=== PATIENT | female | born 1990 | race Caucasian/White ===

== ENCOUNTER 2017-01-21 22:37 | Inpatient (IN) | payer OTHER, MEDICAID ==
[2017-01-21] MEDS ORDERED: Oxytocin/Lactated Ringers 10 UNIT/1,000 ML BAG IV SCH (23:45)
[2017-01-21] MEDS ORDERED: Nalbuphine 20 MG/1 ML Amp IVPUSH PRN (23:50)
[2017-01-21] MEDS ORDERED: Sodium Chloride 0.9% 10 ML Syringe FLUSH PRN (23:50)
[2017-01-21] MEDS ORDERED: Measles, Mumps & Rubella Vaccine 0.5 ML SDV SUBCUT ONE (23:52)
[2017-01-22] MEDS ORDERED: Oxytocin/Lactated Ringers 10 UNIT/1,000 ML BAG IV SCH ×2 (03:00→14:30)
[2017-01-22] MEDS: Lactated Ringers 1,000 ML IV SCH ×5 (05:08→19:51)
--- NOTE | 2017-01-22 10:01 | HP ---
DATE OF ADMISSION: 01/21/2017 ADMISSION DIAGNOSES: A 36 and 2/7th week intrauterine , spontaneous rupture of membranes. HISTORY OF PRESENT ILLNESS: The patient is a 26-year-old, 1, para 0, white female, who is admitted to Labor and Delivery with reports of a gush of fluid on the evening of 01/21/2017. She initially is not simone upon admission, but has started simone at this time. She is noted to have gross rupture of membranes per visualization. heart rate is reassuring and occasional contractions are now being noted. 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 Repeat ultrasound done on 10/06/2016 supported the initial ultrasound dating. The patient has had regular care and has been relatively unremarkable with the exception of gestational diabetes. This is diet controlled. She is group B strep negative. 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 Her rubella titer shows equivocal results with recommendation given to do an MMR after delivery. Her Tdap vaccination was given on 01/19/2017. Her initial visit was on 07/16/2016 at 9 and 1/7th weeks gestational age. Her weight gain has been from 198.2 pounds at first visit to 203.2 pounds. Her vital signs have been stable and her fundal height growth has been appropriate. The patient has somewhat regular cycles with frequency of q.30 days using no control at the time of conception. Laboratory testing in includes blood, which is A positive with negative antibody screen. First trimester laboratory testing showed a hemoglobin of 14.6 and platelets of 308. Her rubella titer was equivocal. RPR is nonreactive. Hepatitis B and HIV assays were negative. Gonorrhea and chlamydia assays are negative. Second trimester testing showed a hemoglobin that was normal at 12.4, platelets that were normal at 219,000. Her 1-hour glucose tolerance test was elevated at 171. A 3-hour glucose tolerance test was abnormal with fasting blood sugar of 96. A 1-hour blood sugar of 177, a 2-hour blood sugar of 166, and a 3-hour blood sugar of 125. Her group B strep screen done on 01/19/2017 was negative. ALLERGIES: Wheat, which causes a headache; dairy; gluten, which causes headaches. No known drug allergies. CURRENT MEDICATIONS: 1. Valacyclovir 500 mg tablets one with onset of cold sore symptoms and repeat in 12 hours. 2. Multivitamins 1 daily. PAST MEDICAL HISTORY: Relatively unremarkable. PAST SURGICAL HISTORY: Noncontributory. FAMILY HISTORY: Maternal grandparents, paternal grandparents, and great grandparents with diabetes. Paternal great grandfather with heart disease. Maternal grandmother and mother with or depression in general. Paternal grandfather with varicosities. Maternal aunt with thyroid dysfunction. Paternal aunt with breast and thyroid cancer. Maternal grandfather with cancer, type unknown. SOCIAL HISTORY: The patient is . is Saad Collins. The patient does not use any significant alcohol, drugs, or tobacco. She lives in [place]. REVIEW OF SYSTEMS: SKIN: Negative. CARDIOVASCULAR: No chest pain or exercise intolerance. Respiratory: No infectious symptoms or asthma noted. BREASTS: Changes associated with only. GI: Appetite is good. No problems apparent. : Changes are associated with . MUSCULOSKELETAL: Unremarkable with the exception of occasional edema. NEUROLOGIC: Unremarkable. PHYSICAL EXAMINATION: VITAL SIGNS: On last evaluation in clinic on 01/19/2017, the patient's weight was 205 pounds, her blood pressure is 104/66, and her heart rate was 153. Initial evaluation showed height of 5 feet 3 inches and weight of 198.2 pounds. GENERAL: The patient is a well-developed, well-nourished, pleasant female, stated age, in no significant distress. SKIN: Warm and dry without lesions. LUNGS: Clear with good breath sounds in all lung sanchez. CARDIOVASCULAR: Regular rate and rhythm without murmurs. BREASTS: Deferred having been done at first visit, found to be normal. ABDOMEN: Protuberant with with last fundal height in clinic at 35+ cm with baby in a vertex presentation by Kostas maneuvers. GENITAL: Shows cervix to be closed at that time, soft, 20% effaced, midline, -3 station. It is now dilated to at least 1 cm. EXTREMITIES AND NEUROLOGICAL: Grossly within normal limits. No edema is noted. ASSESSMENT: 1. Horn intrauterine at 36 and 2/7th weeks gestational age, admitted with spontaneous rupture of membranes and early labor. 2. The patient plans to nurse. 3. Group B strep screen is negative. 4. Gestational diabetes - diet controlled. 5. Up-to-date regarding her Tdap vaccination. 6. She is rubella equivocal, therefore MMR is recommended after delivery. PLAN: 1. Anticipate normal spontaneous vaginal delivery. We will begin Pitocin augmentation because it has been approximately 6-8 hours since rupture of membranes. The patient is not simone intensely. 2. Analgesia per the patient's desire. 3. Support nursing decision. 4. CBC upon admission. MMODAL /[id number]
[2017-01-22] MEDS ORDERED: diphenhydrAMINE 50 MG/ML SDV IVPUSH PRN (16:02)
[2017-01-22] MEDS ORDERED: fentaNYL 100 MCG/2 ML SDV EPIDUR PRN (16:02)
[2017-01-22] MEDS: Bupivacaine/fentaNYL/NS 100 ML Bag EPIDUR SCH ×2 (16:19→23:45)
--- NOTE | 2017-01-22 16:29 | PCM.PREANE ---
Preanesthetic Assessment - Anesthesia/Transfusion/Family Hx Anesthesia History: Prior Anesthesia Without Reaction Family History of Anesthesia Reaction: No Transfusion History: No Prior Transfusion(s) - Review of Systems General: No Symptoms Pulmonary: No Symptoms Cardiovascular: No Symptoms Gastrointestinal: No symptoms Neurological: No Symptoms Other: Reports: None - Physical Assessment Pulse: 102 O2 Sat by Pulse Oximetry: 98 Respiratory Rate: 18 Blood Pressure: 129/78 Temperature: 36.9 C Vital Signs: Last Vital Signs Temp 36.9 C 01/21/17 22:55 Pulse 97 01/21/17 22:55 Resp 18 01/21/17 22:55 BP 129/78 01/21/17 22:55 Pulse Ox Height: 1.6 m Weight: 93.667 kg ASA Class: 2 Mental Status: Alert & Oriented x3 Airway Class: Mallampati = 1 Dentition: Reports: Normal Dentition ROM/Head Extension: Full Lungs: Clear to auscultation, Normal respiratory effort Cardiovascular: Regular Rate, Regular Rhythm - Lab Values: Laboratory Last Values WBC 9.11 K/mm3 (3.98-10.04) 01/21/17 23:58 RBC 4.16 M/mm3 (3.98-5.22) 01/21/17 23:58 Hgb 12.0 gm/L (11.2-15.7) 01/21/17 23:58 Hct 35.4 % (34.1-44.9) 01/21/17 23:58 MCV 85.1 fl (79.4-94.8) 01/21/17 23:58 MCH 28.8 pg (25.6-32.2) 01/21/17 23:58 MCHC 33.9 g/dl (32.2-35.5) 01/21/17 23:58 RDW Std Deviation 41.7 fL (36.4-46.3) 01/21/17 23:58 Plt Count 209 K/mm3 (182-369) 01/21/17 23:58 MPV 11.2 fl (9.4-12.3) 01/21/17 23:58 Neut % (Auto) 66.2 % (34.0-71.1) 01/21/17 23:58 Lymph % (Auto) 23.7 % (19.3-51.7) 01/21/17 23:58 [place] % (Auto) 9.0 % (4.7-12.5) 01/21/17 23:58 Eos % (Auto) 0.8 (0.7-5.8) 01/21/17 23:58 Baso % (Auto) 0.1 % (0.1-1.2) 01/21/17 23:58 Neut # (Auto) 6.03 K/mm3 (1.56-6.13) 01/21/17 23:58 Lymph # (Auto) 2.16 K/mm3 (1.18-3.74) 01/21/17 23:58 [place] # (Auto) 0.82 K/mm3 (0.24-0.36) H 01/21/17 23:58 Eos # (Auto) 0.07 K/mm3 (0.04-0.36) 01/21/17 23:58 Baso # (Auto) 0.01 K/mm3 (0.01-0.08) 01/21/17 23:58 - Allergies Allergies/Adverse Reactions: Allergies Allergy/AdvReac Type Severity Reaction Status Date / Time No Known Allergies Allergy Verified 01/21/17 16:37 - Acknowledgements Anesthesia Type Planned: Epidural Pt an Appropriate Candidate for the Planned Anesthesia: Yes Alternatives and Risks of Anesthesia Discussed w Pt/Guardian: Yes Pt/Guardian Understands and Agrees with Anesthesia Plan: Yes PreAnesthesia Questionnaire Gastrointestinal History: Reports: GERD 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: Neurological History: Reports: Migraines Endocrine/Metabolic History: Reports: Diabetes, Gestational - Infectious Disease History Infectious Disease History: Reports: Chicken Pox - Past Surgical History HEENT Surgical History: Reports: Oral Surgery - SUBSTANCE USE Smoking Status *Q: Never Smoker Second Hand Smoke Exposure: No Recreational Drug Use History: No - CURRENT (IN HOUSE) MEDS Current Meds: Current Medications Diphenhydramine HCl (Benadryl) 25 mg IVPUSH Q6H PRN PRN Reason: Itching Ephedrine Sulfate (Ephedrine Sulfate) 5 mg IVPUSH ASDIRECTED PRN PRN Reason: HYPOTENTSION Fentanyl (Sublimaze) 100 mcg EPIDUR Q3H PRN PRN Reason: PAIN Last Admin: 01/22/17 16:18 Dose: 100 mcg Fentanyl/Bupivacaine HCl (Fentanyl/Bupivacaine/Ns 2 Mcg-0.125% 100 Ml) 100 ml EPIDUR ASDIRECTED MAMIE Last Admin: 01/22/17 16:19 Dose: 100 ml Lactated Ringer's (Ringers, Lactated) 1,000 mls @ 100 mls/hr IV ASDIRECTED MAMIE Last Admin: 01/22/17 12:14 Dose: 100 mls/hr Oxytocin/Lactated Ringer's (Pitocin In Lr 10 Units/1,000 Ml) 10 unit in 1,000 mls @ 500 mls/hr IV TITRATE MAMIE PRN Reason: Protocol Oxytocin/Lactated Ringer's (Pitocin In Lr 10 Units/1,000 Ml) 10 unit in 1,000 mls @ 12 mls/hr IV TITRATE MAMIE; 2 MUNITS/MIN PRN Reason: Protocol Last Titration: 01/22/17 15:09 Dose: 0 munits/min, 0 mls/hr Oxytocin 20 unit/ Lactated (Ringer's) 1,002 mls @ 60.12 mls/hr IV TITRATE MAMIE; 20 MUNITS/MIN PRN Reason: Protocol Last Titration: 01/22/17 15:20 Dose: 21 munits/min, 63.12 mls/hr Nalbuphine HCl (Nubain) 10 mg IVPUSH Q2H PRN PRN Reason: Pain (moderate 4-6) Sodium Chloride (Saline Flush) 10 ml FLUSH ASDIRECTED PRN PRN Reason: Keep Vein Open Discontinued Medications Oxytocin/Lactated Ringer's (Pitocin In Lr 10 Units/1,000 Ml) 10 unit in 1,000 mls @ 120 mls/hr IV TITRATE MAMIE; 20 MUNITS/MIN PRN Reason: Protocol Measles/Mumps/Rubella Vaccine Live (M-M-R Ii Vaccine) 0.5 ml SUBCUT .ONCE ONE Stop: 01/21/17 23:53
[2017-01-22] MEDS: ePHEDrine 50 MG/ML SDV IVPUSH PRN ×2 (16:41→16:45)
[2017-01-22] MEDS: Acetaminophen 325 MG Tab PO PRN (20:00)
[2017-01-22] MEDS ORDERED: ceFAZolin 2 GM in Premix Bag 1 BAG IV ONE (22:00)
[2017-01-22] MEDS ORDERED: Ondansetron 4 MG/2 ML SDV IVPUSH PRN (22:15)
[2017-01-22] MEDS ORDERED: Ondansetron 4 MG/2 ML SDV ONE (22:17)
[2017-01-23] MEDS: Acetaminophen 325 MG Tab PO PRN (00:35)
[2017-01-23] MEDS ORDERED: ceFAZolin 1 GM in Premix Bag 1 BAG IV SCH (04:00)
[2017-01-23] MEDS ORDERED: Lidocaine 1% 50 ML MDV ONE (04:38)
[2017-01-23] MEDS ORDERED: Lidocaine 1% 50 ML MDV INJECT ONE (04:45)
--- NOTE | 2017-01-23 05:17 | PCM.SN ---
- Free Text/Narrative Note: Malini is a 26-year-old 1 now para 1001 white female who was admitted approximately 36 hours ago with spontaneous rupture membranes at 36-2/7 weeks gestational age. She is allowed to labor naturally for approximate 6-8 hours and actually declined Pitocin augmentation during that time in hopes to have a natural delivery. Approximately 8-10 hours after rupture membranes Pitocin was allowed to be started and was given for augmentation of labor. The patient had a very slow increase in frequency and intensity of labor with the Pitocin advancement. She eventually achieved complete cervical dilation in the early hours of 01/23/2017. She had a low-grade temperature and was started on Ancef. She received 2 doses of Ancef total during the course of her labor She delivered a viable, garcia, male infant with Apgars of 6 and 8, a weight of 3280 g (7 pounds 3.7 ounces), 20.5 inches in length in a right occiput posterior position at 0447 hrs. on 01/23/2017. The baby delivered over a midline episiotomy. Lidocaine 1% approximately 15 mL total was used as a local injection in the area of the perineum. There were no extensions or other lacerations noted. Pitocin was given IV after delivery of the baby. The baby's nose and mouth were bulb suctioned and the baby was placed on mom's abdomen. Cord was clamped 2 and cut by the father. Cord blood was obtained. The baby was moved to the warmer and dried. Placenta delivered in a Schultze fashion, appeared intact and had a three- vessel cord. Estimated blood loss was approximately 300 mL. Episiotomy was repaired in a routine fashion using 3-0 Monocryl suture. Estimated blood loss is 100 mL. Condition good. Patient plans to nurse.
[2017-01-23] MEDS ORDERED: Witch Hazel Medicated Pads 100/Jar TOP PRN (06:35)
[2017-01-23] MEDS ORDERED: Lanolin 100% Cream 7 GM Tube TOP PRN (06:35)
[2017-01-23] MEDS ORDERED: Benzocaine/Menthol 20%-0.5% Spray 56 GM Canister TOP PRN (06:35)
[2017-01-23] MEDS ORDERED: Acetaminophen 325 MG Tab PO PRN (06:35)
[2017-01-23] MEDS: Ibuprofen 600 MG Tab PO PRN ×3 (07:36→21:06)
--- NOTE | 2017-01-23 11:12 | PCM48HPAN ---
Post Anesthesia Note - EVALUATION WITHIN 48HRS OF ANESTHETIC Vital Signs in Normal Range: Yes Patient Participated in Evaluation: Yes Respiratory Function Stable: Yes Airway Patent: Yes Cardiovascular Function Stable: Yes Hydration Status Stable: Yes Pain Control Satisfactory: Yes Nausea and Vomiting Control Satisfactory: Yes Mental Status Recovered: Yes
[2017-01-23] MEDS: Docusate Sodium 100 MG Cap PO PRN (12:25)
[2017-01-23] MEDS: Prenatal Multivitamin with Calcium/Folic Acid/Iron Tab PO SCH (12:25)
[2017-01-23] MEDS ORDERED: Bupivacaine 0.25% 10 ML SDV ONE (22:22)
--- NOTE | 2017-01-24 08:31 | PCM.PNPP ---
- General Info Date of Service: 01/24/17 Functional Status: Reports: pain controlled - Review of Systems General: Reports: No Symptoms HEENT: Reports: no symptoms Pulmonary: Reports: no symptoms Cardiovascular: Reports: No Symptoms Gastrointestinal: Reports: No symptoms Genitourinary: Reports: no symptoms Musculoskeletal: Reports: no symptoms Skin: Reports: no symptoms Neurological: Reports: No Symptoms Psychiatric: Reports: no symptoms - General Info Date of Service: 01/25/17 - Patient Data Vital Signs - most recent: Last Vital Signs Temp 36.5 C 01/23/17 21:08 Pulse 66 01/23/17 21:08 Resp 1 L 01/23/17 21:08 BP 116/60 01/23/17 21:08 Pulse Ox 96 01/23/17 21:08 Weight - most recent: 93.667 kg I&O - last 24 hours: Intake & Output 01/23/17 01/24/17 01/24/17 22:59 06:59 14:59 Intake Total 360 Balance 360 Lab Results - last 24 hrs: Laboratory Results - last 24 hr 01/24/17 Range/Units 05:06 WBC 12.00 H (3.98-10.04) K/mm3 RBC 3.57 L (3.98-5.22) M/mm3 Hgb 10.4 L (11.2-15.7) gm/L Hct 30.9 L (34.1-44.9) % MCV 86.6 (79.4-94.8) fl MCH 29.1 (25.6-32.2) pg MCHC 33.7 (32.2-35.5) g/dl RDW Std Deviation 42.1 (36.4-46.3) fL Plt Count 165 L (182-369) K/mm3 MPV 10.8 (9.4-12.3) fl Med Orders - Current: Current Medications Acetaminophen (Tylenol) 650 mg PO Q4H PRN PRN Reason: mild pain or fever Benzocaine/Menthol (Dermoplast Pain Relief [place]) 0 gm TOP ASDIRECTED PRN PRN Reason: Perineal Comfort Measure Last Admin: 01/23/17 07:43 Dose: 1 canister Docusate Sodium (Colace) 100 mg PO BID PRN PRN Reason: Constipation Last Admin: 01/23/17 12:25 Dose: 100 mg Emollient Ointment (Lansinoh Hpa) 0 gm TOP ASDIRECTED PRN PRN Reason: Sore Nipples Oxytocin 20 unit/ Lactated (Ringer's) 1,002 mls @ 500 mls/hr IV ASDIRECTED COUNT INCLUDES THE [facility] Last Admin: 01/23/17 04:50 Dose: 500 mls/hr Ibuprofen (Motrin) 600 mg PO Q4H PRN PRN Reason: Mild pain or fever Last Admin: 01/23/17 21:06 Dose: 600 mg Prenat Multivit/[place]/Iron/Folic Ac ( Plus Iron) 1 each PO DAILY COUNT INCLUDES THE [facility] Last Admin: 01/23/17 12:25 Dose: 1 each Witch Mariella (Tucks) 1 pad TOP ASDIRECTED PRN PRN Reason: Hemorrhoid pain Last Admin: 01/23/17 07:43 Dose: 1 box Discontinued Medications Acetaminophen (Tylenol) 650 mg PO Q4H PRN PRN Reason: Pain Last Admin: 01/23/17 00:35 Dose: 650 mg Bupivacaine HCl (Sensorcaine-Mpf 0.25%) 10 ml .ROUTE .K-MED ONE Stop: 01/23/17 22:23 Diphenhydramine HCl (Benadryl) 25 mg IVPUSH Q6H PRN PRN Reason: Itching Ephedrine Sulfate (Ephedrine Sulfate) 5 mg IVPUSH ASDIRECTED PRN PRN Reason: HYPOTENTSION Last Admin: 01/22/17 16:45 Dose: 5 mg Fentanyl (Sublimaze) 100 mcg EPIDUR Q3H PRN PRN Reason: PAIN Last Admin: 01/22/17 16:18 Dose: 100 mcg Fentanyl/Bupivacaine HCl (Fentanyl/Bupivacaine/Ns 2 Mcg-0.125% 100 Ml) 100 ml EPIDUR ASDIRECTED COUNT INCLUDES THE [facility] Last Admin: 01/22/17 23:45 Dose: 100 ml Lactated Ringer's (Ringers, Lactated) 1,000 mls @ 100 mls/hr IV ASDIRECTED COUNT INCLUDES THE [facility] Last Admin: 01/22/17 19:51 Dose: 100 mls/hr Oxytocin/Lactated Ringer's (Pitocin In Lr 10 Units/1,000 Ml) 10 unit in 1,000 mls @ 500 mls/hr IV TITRATE COUNT INCLUDES THE [facility] PRN Reason: Protocol Oxytocin/Lactated Ringer's (Pitocin In Lr 10 Units/1,000 Ml) 10 unit in 1,000 mls @ 12 mls/hr IV TITRATE MAMIE; 2 MUNITS/MIN PRN Reason: Protocol Last Titration: 01/22/17 15:09 Dose: 0 munits/min, 0 mls/hr Oxytocin/Lactated Ringer's (Pitocin In Lr 10 Units/1,000 Ml) 10 unit in 1,000 mls @ 120 mls/hr IV TITRATE MAMIE; 20 MUNITS/MIN PRN Reason: Protocol Oxytocin 20 unit/ Lactated (Ringer's) 1,002 mls @ 60.12 mls/hr IV TITRATE MAMIE; 20 MUNITS/MIN PRN Reason: Protocol Last Titration: 01/23/17 02:10 Dose: 23 munits/min, 69.13 mls/hr Cefazolin Sodium/Dextrose 2 gm (/ Premix) 50 mls @ 100 mls/hr IV ONETIME ONE Stop: 01/22/17 22:29 Last Admin: 01/22/17 22:00 Dose: 100 mls/hr Cefazolin Sodium/Dextrose 1 gm (/ Premix) 50 mls @ 100 mls/hr IV Q6H MAMIE Last Admin: 01/23/17 03:50 Dose: 100 mls/hr Lidocaine HCl (Xylocaine 1%) Confirm Administered Dose 50 ml .ROUTE .STK-MED ONE Stop: 01/23/17 04:39 Last Admin: 01/23/17 06:05 Dose: Not Given Lidocaine HCl (Xylocaine 1%) 50 ml INJECT ONETIME ONE Stop: 01/23/17 04:46 Last Admin: 01/23/17 04:55 Dose: 50 ml Measles/Mumps/Rubella Vaccine Live (M-M-R Ii Vaccine) 0.5 ml SUBCUT .ONCE ONE Stop: 01/21/17 23:53 Nalbuphine HCl (Nubain) 10 mg IVPUSH Q2H PRN PRN Reason: Pain (moderate 4-6) Ondansetron HCl (Zofran) Confirm Administered Dose 4 mg .ROUTE .STK-MED ONE Stop: 01/22/17 22:18 Last Admin: 01/23/17 00:13 Dose: Not Given Ondansetron HCl (Zofran) 4 mg IVPUSH Q4H PRN PRN Reason: Nausea Last Admin: 01/22/17 22:25 Dose: 4 mg Sodium Chloride (Saline Flush) 10 ml FLUSH ASDIRECTED PRN PRN Reason: Keep Vein Open - Infant Interaction Disposition, : [place] at Bedside Support Person: - Exam General: alert, oriented HEENT: Pupils equal Neck: supple Lungs: Clear to auscultation, Normal respiratory effort Cardiovascular: Regular Rate, Regular Rhythm Abdomen: bowel sounds present, soft, no tenderness, no distension Extremities: no edema Skin: warm, dry, intact Wound/Incisions: healing well Neurological: no new focal deficit Psy/Mental Status: alert, normal affect, normal mood - Problem List Review Problem List Initiated/Reviewed/Updated: Yes - Assessment Assessment:: PPD1 Doing great. No issues. - Plan Plan:: Probable discharge tomorrow.
[2017-01-24] MEDS: Ibuprofen 600 MG Tab PO PRN ×2 (11:24→20:41)
[2017-01-24] MEDS: Docusate Sodium 100 MG Cap PO PRN (11:26)
[2017-01-24] MEDS: Prenatal Multivitamin with Calcium/Folic Acid/Iron Tab PO SCH (11:26)
[2017-01-25] MEDS: Ibuprofen 600 MG Tab PO PRN (03:57)
[2017-01-25 04:21] VITALS: BP 126/89
--- NOTE | 2017-01-25 08:17 | PCM.DCSUM1 ---
Discharge Summary - Discharge Data Discharge Date: 01/25/17 Discharge Disposition: Home, Self-Care 01 Condition: Good - Patient Summary/Data Hospital Course: Malini is a 26-year-old 1 now para 1001 white female who was admitted approximately 36 hours ago with spontaneous rupture membranes at 36-2/7 weeks gestational age. She is allowed to labor naturally for approximate 6-8 hours and actually declined Pitocin augmentation during that time in hopes to have a natural delivery. Approximately 8-10 hours after rupture membranes Pitocin was allowed to be started and was given for augmentation of labor. The patient had a very slow increase in frequency and intensity of labor with the Pitocin advancement. She eventually achieved complete cervical dilation in the early hours of 01/23/2017. She had a low-grade temperature and was started on Ancef. She received 2 doses of Ancef total during the course of her labor She delivered a viable, garcia, male with Apgars of 6 and 8, a weight of 3280 g (7 pounds 3.7 ounces), 20.5 inches in length in a right occiput posterior position at 0447 hrs. on 01/23/2017. The baby delivered over a midline episiotomy. Lidocaine 1% approximately 15 mL total was used as a local injection in the area of the perineum. There were no extensions or other lacerations noted. Pitocin was given IV after delivery of the baby. The baby's nose and mouth were bulb suctioned and the baby was placed on mom's abdomen. Cord was clamped 2 and cut by the father. Cord blood was obtained. The baby was moved to the warmer and dried. Placenta delivered in a Schultze fashion, appeared intact and had a three- vessel cord. Estimated blood loss was approximately 300 mL. Episiotomy was repaired in a routine fashion using 3-0 Monocryl suture. Estimated blood loss is 100 mL. Condition good. Patient plans to nurse. - Patient Instructions Diet: Usual Diet as Tolerated Activity: Apply Ice Driving: May Drive Today Notify Provider of: Fever, Increased Pain, Swelling and Redness - Discharge Plan Referrals: Carlos Majano MD [Physician] - - Discharge Summary/Plan Comment DC Time >30 min.: No - General Info Date of Service: 01/25/17 - Review of Systems General: Reports: No Symptoms HEENT: Reports: no symptoms Pulmonary: Reports: no symptoms Cardiovascular: Reports: No Symptoms Gastrointestinal: Reports: No symptoms Genitourinary: Reports: no symptoms Musculoskeletal: Reports: no symptoms Skin: Reports: no symptoms Neurological: Reports: No Symptoms Psychiatric: Reports: no symptoms - Patient Data Vitals - Most Recent: Last Vital Signs Temp 36.7 C 01/25/17 03:53 Pulse 72 01/25/17 03:53 Resp 16 01/25/17 03:53 BP 126/89 01/25/17 03:53 Pulse Ox 97 01/25/17 03:53 Weight - Most Recent: 93.667 kg I&O - Last 24 hours: Intake & Output 01/24/17 01/25/17 01/25/17 22:59 06:59 14:59 Intake Total 420 Balance 420 Med Orders - Current: Current Medications Acetaminophen (Tylenol) 650 mg PO Q4H PRN PRN Reason: mild pain or fever Last Admin: 01/24/17 19:49 Dose: 650 mg Benzocaine/Menthol (Dermoplast Pain Relief [place]) 0 gm TOP ASDIRECTED PRN PRN Reason: Perineal Comfort Measure Last Admin: 01/23/17 07:43 Dose: 1 canister Docusate Sodium (Colace) 100 mg PO BID PRN PRN Reason: Constipation Last Admin: 01/24/17 11:26 Dose: 100 mg Emollient Ointment (Lansinoh Hpa) 0 gm TOP ASDIRECTED PRN PRN Reason: Sore Nipples Ibuprofen (Motrin) 600 mg PO Q4H PRN PRN Reason: Mild pain or fever Last Admin: 01/25/17 03:57 Dose: 600 mg Prenat Multivit/Catlin/Iron/Folic Ac ( Plus Iron) 1 each PO DAILY MAMIE Last Admin: 01/24/17 11:26 Dose: 1 each Witch Mariella (Tucks) 1 pad TOP ASDIRECTED PRN PRN Reason: Hemorrhoid pain Last Admin: 01/23/17 07:43 Dose: 1 box Discontinued Medications Acetaminophen (Tylenol) 650 mg PO Q4H PRN PRN Reason: Pain Last Admin: 01/23/17 00:35 Dose: 650 mg Bupivacaine HCl (Sensorcaine-Mpf 0.25%) 10 ml .ROUTE .STK-MED ONE Stop: 01/23/17 22:23 Diphenhydramine HCl (Benadryl) 25 mg IVPUSH Q6H PRN PRN Reason: Itching Ephedrine Sulfate (Ephedrine Sulfate) 5 mg IVPUSH ASDIRECTED PRN PRN Reason: HYPOTENTSION Last Admin: 01/22/17 16:45 Dose: 5 mg Fentanyl (Sublimaze) 100 mcg EPIDUR Q3H PRN PRN Reason: PAIN Last Admin: 01/22/17 16:18 Dose: 100 mcg Fentanyl/Bupivacaine HCl (Fentanyl/Bupivacaine/Ns 2 Mcg-0.125% 100 Ml) 100 ml EPIDUR ASDIRECTED MAMIE Last Admin: 01/22/17 23:45 Dose: 100 ml Lactated Ringer's (Ringers, Lactated) 1,000 mls @ 100 mls/hr IV ASDIRECTED MAMIE Last Admin: 01/22/17 19:51 Dose: 100 mls/hr Oxytocin/Lactated Ringer's (Pitocin In Lr 10 Units/1,000 Ml) 10 unit in 1,000 mls @ 500 mls/hr IV TITRATE MAMIE PRN Reason: Protocol Oxytocin/Lactated Ringer's (Pitocin In Lr 10 Units/1,000 Ml) 10 unit in 1,000 mls @ 12 mls/hr IV TITRATE MAMIE; 2 MUNITS/MIN PRN Reason: Protocol Last Titration: 01/22/17 15:09 Dose: 0 munits/min, 0 mls/hr Oxytocin/Lactated Ringer's (Pitocin In Lr 10 Units/1,000 Ml) 10 unit in 1,000 mls @ 120 mls/hr IV TITRATE MAMIE; 20 MUNITS/MIN PRN Reason: Protocol Oxytocin 20 unit/ Lactated (Ringer's) 1,002 mls @ 60.12 mls/hr IV TITRATE MAMIE; 20 MUNITS/MIN PRN Reason: Protocol Last Titration: 01/23/17 02:10 Dose: 23 munits/min, 69.13 mls/hr Cefazolin Sodium/Dextrose 2 gm (/ Premix) 50 mls @ 100 mls/hr IV ONETIME ONE Stop: 01/22/17 22:29 Last Admin: 01/22/17 22:00 Dose: 100 mls/hr Cefazolin Sodium/Dextrose 1 gm (/ Premix) 50 mls @ 100 mls/hr IV Q6H MAMIE Last Admin: 01/23/17 03:50 Dose: 100 mls/hr Oxytocin 20 unit/ Lactated (Ringer's) 1,002 mls @ 500 mls/hr IV ASDIRECTED MAMIE Last Admin: 01/23/17 04:50 Dose: 500 mls/hr Lidocaine HCl (Xylocaine 1%) Confirm Administered Dose 50 ml .ROUTE .STK-MED ONE Stop: 01/23/17 04:39 Last Admin: 01/23/17 06:05 Dose: Not Given Lidocaine HCl (Xylocaine 1%) 50 ml INJECT ONETIME ONE Stop: 01/23/17 04:46 Last Admin: 01/23/17 04:55 Dose: 50 ml Measles/Mumps/Rubella Vaccine Live (M-M-R Ii Vaccine) 0.5 ml SUBCUT .ONCE ONE Stop: 01/21/17 23:53 Last Admin: 01/25/17 04:05 Dose: 0.5 ml Nalbuphine HCl (Nubain) 10 mg IVPUSH Q2H PRN PRN Reason: Pain (moderate 4-6) Ondansetron HCl (Zofran) Confirm Administered Dose 4 mg .ROUTE .STK-MED ONE Stop: 01/22/17 22:18 Last Admin: 01/23/17 00:13 Dose: Not Given Ondansetron HCl (Zofran) 4 mg IVPUSH Q4H PRN PRN Reason: Nausea Last Admin: 01/22/17 22:25 Dose: 4 mg Sodium Chloride (Saline Flush) 10 ml FLUSH ASDIRECTED PRN PRN Reason: Keep Vein Open - Exam General: Reports: alert, oriented HEENT: Reports: Pupils equal, Pupils reactive, EOMI, Mucous membr. moist/pink Neck: Reports: supple Lungs: Reports: Clear to auscultation, Normal respiratory effort Cardiovascular: Reports: Regular Rate, Regular Rhythm Abdomen: Reports: bowel sounds present, soft, no tenderness, no distension (Female) Exam: Normal External Exam, Normal Speculum Exam, Normal Bimanual Exam Rectal (Female) Exam: Normal Exam, Normal Rectal Tone Back Exam: Reports: Normal Inspection, Full Range of Motion Extremities: Reports: no edema, normal pulses Neurological: Reports: no new focal deficit Psy/Mental Status: Reports: alert, normal affect, normal mood *Q Meaningful Use (DIS) - VTE *Q VTE Criteria *Q: - Stroke *Q Stroke Criteria *Q: - AMI *Q AMI Criteria *Q:
[2017-01-25] MEDS: Prenatal Multivitamin with Calcium/Folic Acid/Iron Tab PO SCH (10:33)
== END 2017-01-25 11:20 | disposition home or self-care (01) | DRG 775 ==
LOC: JD.OBCHECK 22:37 → JD.OB 22:39 → JD.OBCHECK 23:46 → JD.OB 23:46 → OBSVTOIN 01-23 04:47 → JD.OB 01-23 04:47
PROVIDERS: ADMIT Obstetrics & Gynecology; ATTEND Obstetrics & Gynecology
PROC: 10E0XZZ Delivery of Products of Conception, External Approach (ICD-10-PCS; principal; 2017-01-23)
PROC: 0KQM0ZZ Repair Perineum Muscle, Open Approach (ICD-10-PCS; 2017-01-23)
PROC: 3E0234Z Introduction of Serum, Toxoid and Vaccine into Muscle, Percutaneous Approach (ICD-10-PCS; 2017-01-25)
DX: O24.420 Gestational diabetes mellitus in childbirth, diet controlled (principal); O70.1 Second degree perineal laceration during delivery; Z3A.36 36 weeks gestation of pregnancy; Z37.0 Single live birth; Z23 Encounter for immunization
CPT/HCPCS: 01967; 36415; 85025; 85027; 90707; A9270-GY; J0690; J2405; J2590; J3010; J7120

== ENCOUNTER 2021-12-03 02:39 | Inpatient (IN) | payer BC ==
[~2021-12-03 02:39] MED LIST: Lactated Ringers 1,000 ML IV SCH; Lidocaine 1%/Sod Bicarbonate in NS 8.4% 1 ML Syringe IDERM PRN; Sodium Chloride 0.9% 10 ML Syringe FLUSH PRN; Sodium Chloride 0.9% 10 ML Syringe FLUSH SCH
[2021-12-03] MEDS ORDERED: Citric Acid/Sodium Citrate Solution 30 ML Cup PO ONE (06:30)
[2021-12-03] MEDS ORDERED: Metoclopramide 10 MG/2 ML SDV IVPUSH ONE (06:30)
[2021-12-03] MEDS ORDERED: Lactated Ringers 1,000 ML ONE (06:42)
[2021-12-03] MEDS ORDERED: Metoclopramide 10 MG/2 ML SDV ONE (06:43)
[2021-12-03] MEDS ORDERED: Citric Acid/Sodium Citrate Solution 30 ML Cup ONE (06:44)
[2021-12-03] MEDS: Lactated Ringers 1,000 ML IV SCH ×2 (06:46→06:48)
[2021-12-03] MEDS ORDERED: Bupivacaine 0.5% 30 ML SDV ONE (07:14)
[2021-12-03] MEDS ORDERED: diphenhydrAMINE 50 MG/ML SDV ONE (07:15)
[2021-12-03] MEDS ORDERED: Morphine PF 10 MG/10 ML SDV ONE (07:15)
[2021-12-03] MEDS ORDERED: ceFAZolin 2 GM in Sodium Chloride 0.9% 100 ML IV ONE (08:00)
[2021-12-03] MEDS ORDERED: Oxytocin/Lactated Ringers 20 UNIT/1,000 ML BAG IV SCH (08:00)
[2021-12-03] MEDS ORDERED: Ondansetron 4 MG/2 ML SDV IVPUSH PRN (08:27)
[2021-12-03] MEDS ORDERED: Meperidine 50 MG/ML Vial IVPUSH PRN (08:27)
[2021-12-03] MEDS ORDERED: diphenhydrAMINE 50 MG/ML SDV IVPUSH PRN ×2 (08:27→09:46)
[2021-12-03] MEDS ORDERED: fentaNYL 100 MCG/2 ML SDV IVPUSH PRN (08:27)
[2021-12-03] MEDS ORDERED: Oxytocin 10 Units/1 ML SDV ONE (08:30)
[2021-12-03] MEDS ORDERED: ceFAZolin 1 GM Vial ONE (08:31)
[2021-12-03] MEDS ORDERED: Ondansetron 4 MG/2 ML SDV ONE (08:33)
[2021-12-03] MEDS ORDERED: Ketorolac 30 MG/ML SDV ONE (08:34)
[2021-12-03] MEDS ORDERED: Sodium Chloride 0.9% 10 ML Syringe FLUSH SCH (09:00)
[2021-12-03] MEDS ORDERED: Ondansetron 4 MG/2 ML SDV IV PRN (09:46)
[2021-12-03] MEDS ORDERED: Dextrose 5%-Lactated Ringers 1,000 ML IV SCH (09:46)
[2021-12-03] MEDS ORDERED: Acetaminophen/oxyCODONE 325-5 MG Tab PO PRN ×2 (09:46)
[2021-12-03] MEDS ORDERED: Naloxone 0.4 MG/ML SDV IVPUSH PRN (09:46)
[2021-12-03] MEDS ORDERED: ePHEDrine 50 MG/ML SDV IVPUSH PRN (09:46)
[2021-12-03] MEDS: Simethicone 80 MG Tab.Chew PO SCH ×3 (13:21→21:04)
[2021-12-03] MEDS: Ibuprofen 800 MG Tab PO SCH ×2 (15:43→23:17)
[2021-12-04] MEDS: Ibuprofen 800 MG Tab PO SCH ×3 (06:55→23:23)
[2021-12-04] MEDS: Docusate Sodium 100 MG Cap PO PRN ×2 (08:48→21:07)
[2021-12-04] MEDS: Prenatal Multivitamin with Calcium/Folic Acid/Iron Tab PO SCH (08:48)
[2021-12-04] MEDS: Simethicone 80 MG Tab.Chew PO SCH ×4 (08:48→21:07)
[2021-12-05 03:24] VITALS: PULSE 71
[2021-12-05] MEDS: Prenatal Multivitamin with Calcium/Folic Acid/Iron Tab PO SCH (10:52)
[2021-12-05] MEDS: Ibuprofen 800 MG Tab PO SCH (10:53)
[2021-12-05] MEDS: Simethicone 80 MG Tab.Chew PO SCH (10:54)
[2021-12-05 14:36] VITALS: BP 118/67
== END 2021-12-05 11:00 | disposition home or self-care (01) | DRG 540 ==
LOC: JD.OB 05:00
PROVIDERS: ADMIT Obstetrics & Gynecology; ATTEND Obstetrics & Gynecology
PROC: 10D00Z1 Extraction of Products of Conception, Low, Open Approach (ICD-10-PCS; principal; 2021-12-03)
DX: O24.420 Gestational diabetes mellitus in childbirth, diet controlled (principal); Z3A.39 39 weeks gestation of pregnancy; Z37.0 Single live birth; Z20.822 Contact with and (suspected) exposure to COVID-19
CPT/HCPCS: 01961; 36415; 59025; 82947; 85025; 86592; 86850; 86900; 86901; 94762; A9270-GY; J0690; J1200; J1885; J2274; J2370; J2405; J2590; J2765; J3490; J7120; J7121; U0002